=== PATIENT | female | born 1975 | race Caucasian/White ===

== ENCOUNTER 2021-03-08 19:29 | Emergency (ER) | payer BC ==
[2021-03-08] MEDS ORDERED: FAMOTIDINE 20MG TAB 20 MG TAB ONE (19:53)
[2021-03-08] MEDS ORDERED: DIPHENHYDRAMINE HCL 25 MG CAPSULE ONE (19:53)
[2021-03-08] MEDS ORDERED: METHYLPREDNISOLONE SOD SUCC 125MG/2ML VIAL ONE (20:13)
== END 2021-03-08 20:37 | disposition home or self-care (01) ==
LOC: EDH 19:29
DX: L50.9 Urticaria, unspecified (principal); I10 Essential (primary) hypertension; E78.00 Pure hypercholesterolemia, unspecified
CPT/HCPCS: 96372; 99284; J2930; Q0163

== ENCOUNTER → 2024-03-09 | Outpatient (CLI) | payer OTHER | END | disposition home or self-care (01) | LOC: OIH 10:19 | PROVIDERS: ATTEND Internal Medicine | DX: Z13.6 Encounter for screening for cardiovascular disorders (principal) | CPT/HCPCS: 75571 ==